=== PATIENT | female | born 1985 | race Caucasian/White ===

== ENCOUNTER 2017-04-14 18:10 | Emergency (ER) | payer OTHER ==
[~2017-04-14] VITALS: Ht 167.6 cm; Wt 107.9 kg
[~2017-04-14 18:10] MED LIST: IBUP80TA PO; PERCOCET PO; PREN27TA3 PO; VALT1TAB PO
[2017-04-14 21:32] LABS: BASO # 0.1 10^3/uL (0.0-0.2); BASO % 0.6 % (0.0-1.0); EOS # 0.1 10^3/uL (0.0-0.50); IMMATURE GRANULOCYTE % 0.3 % (0-0); LYMPH # 3.8 10^3/uL (1.5-4.5); MEAN CORPUSCULAR HEMOGLOBIN 30.7 pg (27.0-33.0); MEAN CORPUSCULAR HGB CONC 34.6 g/dl (32.0-36.5); MEAN CORPUSCULAR VOLUME 88.7 fl (80.0-96.0); MONO # 0.7 10^3/uL (0.0-0.8); MONO % 6.1 % (0.0-5.0); NEUTROPHILS # 6.8 10^3/uL (1.8-7.7); PLATELET COUNT, AUTOMATED 300 10^3/uL (150-450); RED CELL DISTRIBUTION WIDTH 12.5 % (11.5-14.5); WHITE BLOOD COUNT 11.5 10^3/uL (4.0-10.0)
[2017-04-14 21:35] LABS: ADD MORPHOLOGY? NO
[2017-04-14 21:42] LABS: CONTROL LINE HCG INT CTR LINE PRESENT
[2017-04-14 21:47] LABS: ALBUMIN 3.9 GM/DL (3.2-5.2); ALBUMIN/GLOBULIN RATIO 1.08 (1.00-1.93); ALKALINE PHOSPHATASE 102 U/L (45-117); ALT/SGPT 26 U/L (12-78); ANION GAP 5 MEQ/L (8-16); AST/SGOT 19 U/L (15-37); BILIRUBIN,DIRECT < 0.1 MG/DL (0.0-0.2); BILIRUBIN,TOTAL 0.2 MG/DL (0.2-1.0); BLOOD UREA NITROGEN 14 MG/DL (7-18); CALCIUM LEVEL 8.9 MG/DL (8.5-10.1); CARBON DIOXIDE LEVEL 27 MEQ/L (21-32); CHLORIDE LEVEL 107 MEQ/L (98-107); CREATININE FOR GFR 0.91 MG/DL (0.55-1.02); GLOMERULAR FILTRATION RATE > 60.0 (>60); GLUCOSE, FASTING 88 MG/DL (70-105); POTASSIUM SERUM 3.7 MEQ/L (3.5-5.1); SODIUM LEVEL 139 MEQ/L (136-145); TOTAL PROTEIN 7.5 GM/DL (6.4-8.2)
[2017-04-14] MEDS ORDERED: MIRA3350 PO (23:35)
--- NOTE | 2017-04-14 23:40 | REPUSA ---
Clinical history: Right upper quadrant pain. Findings: The pancreas is limited in visualization secondary to overlying bowel gas, but appears alexia sly unremarkable. The liver demonstrates uniform echotexture and echogenicity, with no mass lesions. The gallbladder is contracted but otherwise unremarkable. The common bile duct measures 2 mm and is w ithin normal limits. The right kidney measures 11.9 cm in length and is unremarkable. There is no asc ites. Impression: Unremarkable ultrasound examination of the right upper quadrant.
[2017-04-14] MEDS ORDERED: BISACODYL 5 MG TAB PO ONE (23:45)
[2017-04-14 23:57] VITALS: BP 129/88
--- NOTE | 2017-04-15 00:12 | REP ---
Clinical: Constipation and abdominal pain. Technique: Upright view of the chest with supine and upright views of the abdomen and pelvis. Findings: Frontal upright view of the chest demonstrates no acute cardiopulmonary process or free air below the diaphragm to suspect pneumoperitoneum. Supine and upright views of the abdomen and pelvis demonstrate nonspecific bowel gas pattern without obstruction or perforation. Moderate fecal stasis cannot be excluded. No organomegaly. No abnormal calcifications. Skeletal structures normal for age. Impression: Nonspecific bowel gas pattern. Cannot exclude moderate fecal stasis. Signed by Michael Khoury MD 04/15/2017 12:03 A
== END 2017-04-15 00:03 | disposition home or self-care (01) ==
LOC: M ED 18:10
DX: K59.00 Constipation, unspecified (principal)

== ENCOUNTER → 2017-06-14 | Outpatient (REF) | payer OTHER ==
[~2017-06-14] MED LIST changes: +MIRA3350 PO
== END ==
LOC: M LAB REF 13:46
PROVIDERS: ATTEND Specialist
DX: Z12.4 Encounter for screening for malignant neoplasm of cervix (principal)

== ENCOUNTER → 2018-01-26 | Outpatient (REF) | payer OTHER ==
[2018-01-26 14:18] LABS: BASO # 0.1 10^3/uL (0.0-0.2); BASO % 0.6 % (0.0-1.0); EOS # 0.1 10^3/uL (0.0-0.50); EOS % 0.9 % (0.0-3.0); HEMATOCRIT 41.3 % (36.0-47.0); HEMOGLOBIN 14.2 g/dl (12.0-15.5); IMMATURE GRANULOCYTE % 0.3 % (0-3.0); LYMPH # 2.4 10^3/uL (1.5-4.5); LYMPH % 31.4 % (24.0-44.0); MEAN CORPUSCULAR HEMOGLOBIN 30.9 pg (27.0-33.0); MEAN CORPUSCULAR HGB CONC 34.4 g/dl (32.0-36.5); MONO # 0.5 10^3/uL (0.0-0.8); MONO % 5.8 % (0.0-5.0); NEUTROPHILS # 4.7 10^3/uL (1.8-7.7); PLATELET COUNT, AUTOMATED 322 10^3/uL (150-450); RED BLOOD COUNT 4.59 10^6/uL (4.00-5.40); RED CELL DISTRIBUTION WIDTH 12.8 % (11.5-14.5); WHITE BLOOD COUNT 7.7 10^3/uL (4.0-10.0)
[2018-01-26 14:31] LABS: TOTAL 25(OH) VITAMIN D 17.9 NG/ML (30.0-100.0)
[2018-01-26 14:44] LABS: ERYTHROCYTE SEDIMENTATION RATE 7 mm/hr (0-20)
[2018-01-26 14:48] LABS: ALBUMIN 3.9 GM/DL (3.2-5.2); ALBUMIN/GLOBULIN RATIO 1.15 (1.00-1.93); ALKALINE PHOSPHATASE 101 U/L (45-117); ALT/SGPT 24 U/L (12-78); ANION GAP 10 MEQ/L (8-16); AST/SGOT 16 U/L (7-37); BILIRUBIN,TOTAL 0.4 MG/DL (0.2-1.0); BLOOD UREA NITROGEN 12 MG/DL (7-18); CALCIUM LEVEL 8.9 MG/DL (8.5-10.1); CARBON DIOXIDE LEVEL 24 MEQ/L (21-32); CHLORIDE LEVEL 108 MEQ/L (98-107); GLOMERULAR FILTRATION RATE > 60.0 (>60); GLUCOSE, FASTING 72 MG/DL (70-100); POTASSIUM SERUM 4.2 MEQ/L (3.5-5.1); RHEUMATOID FACTOR QUANT < 10.0 IU/ML (<15.0); SODIUM LEVEL 142 MEQ/L (136-145); TOTAL PROTEIN 7.3 GM/DL (6.4-8.2)
[2018-01-27 16:20] LABS: ANTINUCLEAR ANTIBODIES DIRECT Negative (Negative)
== END ==
LOC: M LABNEURO 10:53
DX: R51 Headache (principal); R42 Dizziness and giddiness
CPT/HCPCS: 84443

== ENCOUNTER → 2018-04-04 | Outpatient (REF) | payer OTHER ==
[2018-04-06 00:06] LABS: Lyme Disease IgG/IgM Antibodie <0.91 ISR (0.00-0.90); Lyme Disease IgM Ab Quantitati <0.80 index (0.00-0.79)
== END ==
LOC: M LABNEURO 13:36
DX: R21 Rash and other nonspecific skin eruption (principal)
CPT/HCPCS: 36415

== ENCOUNTER → 2018-07-05 | Outpatient (REF) | payer OTHER ==
[2018-07-08 14:10] LABS: HPV HYBRID CAPTURE II Positive (Negative)
== END ==
LOC: M LAB REF 17:22
PROVIDERS: ATTEND Specialist
DX: R87.610 Atypical squamous cells of undetermined significance on cytologic smear of cervix (ASC-US) (principal)

== ENCOUNTER → 2018-07-06 | Outpatient (CLI) | payer OTHER ==
--- NOTE | 2018-07-07 08:18 | REP ---
Clinical: Pelvic and perineal pain . Technique: Transabdominal pelvic ultrasound followed by transvaginal examination for better evaluation of the endometrium and adnexa with color Doppler evaluation of the ovaries. Findings: Bladder is unremarkable and measures 9.4 x 6.9 x 6.5 cm . Heterogeneous anteverted uterus measures 11.4 x 5.8 x 7.1 cm . The endometrial complex measures 19.7 mm thickness. No discrete uterine or endometrial abnormalities are appreciated. Bilateral ovaries are normal in appearance and vascularity without evidence for torsion. Right ovary measures 2.2 x 1.4 x 2.9 cm ; with flow identified on color images . Left ovary measures 3.6 x 2.1 x 2.2 cm and includes 12 mm physiologic involuting cyst ; R I = 0.54 . no pelvic fluid or adnexal mass lesion . Impression: 1. heterogeneous anteverted uterus with thickened endometrial complex likely related to menstrual cycle. 2. 1.2 cm involuting left ovarian cyst. Electronically Signed by Michael Khoury MD 07/07/2018 08:09 A
== END ==
LOC: M SMT 10:21
PROVIDERS: ATTEND Specialist
DX: R10.2 Pelvic and perineal pain (principal); N83.292 Other ovarian cyst, left side

== ENCOUNTER → 2018-08-14 | Outpatient (REF) | payer OTHER | LOC: M LABNEURO 13:05 | PROVIDERS: ATTEND Physician Assistant Medical | DX: E55.9 Vitamin D deficiency, unspecified (principal) ==

== ENCOUNTER → 2019-01-29 | Outpatient (REF) | payer OTHER ==
[~2019-01-29] MED LIST changes: +OXYC1TAB23 PO; -PERCOCET PO
[2019-02-01 14:07] LABS: HPV HYBRID CAPTURE II Negative (Negative)
== END ==
LOC: M LAB REF 09:10
PROVIDERS: ATTEND Specialist
DX: R87.610 Atypical squamous cells of undetermined significance on cytologic smear of cervix (ASC-US) (principal)

== ENCOUNTER → 2020-02-16 | Outpatient (REF) | payer OTHER | LOC: M LAB REF 07:07 | PROVIDERS: ATTEND Physician Assistant | DX: R10.30 Lower abdominal pain, unspecified (principal) ==

== ENCOUNTER → 2020-06-04 | Outpatient (REF) | payer OTHER ==
[2020-06-04 20:34] LABS: CHLAMYDIA DNA AMPLIFICATION NEGATIVE (NEGATIVE); GC DNA AMPLIFICATION NEGATIVE (NEGATIVE)
== END ==
LOC: M SFHCWAGY 16:50
PROVIDERS: ATTEND Specialist
DX: Z12.4 Encounter for screening for malignant neoplasm of cervix (principal); R87.610 Atypical squamous cells of undetermined significance on cytologic smear of cervix (ASC-US); Z20.2 Contact with and (suspected) exposure to infections with a predominantly sexual mode of transmission
CPT/HCPCS: 87491; 87591; 87624; G0123

== ENCOUNTER → 2020-06-04 | Outpatient (REF) | payer OTHER ==
[2020-06-04 18:50] LABS: HEPATITIS C VIRUS ABY INDEX < 0.0 INDEX (<0.8); HIV 1&2 SCREEN CENTAUR NEGATIVE (NEGATIVE)
== END ==
LOC: M PLALAB 15:47
PROVIDERS: ATTEND Specialist
DX: Z01.419 Encounter for gynecological examination (general) (routine) without abnormal findings (principal); Z20.2 Contact with and (suspected) exposure to infections with a predominantly sexual mode of transmission

== ENCOUNTER 2020-09-03 00:27 | Emergency (ER) | payer MEDICAID, OTHER ==
[~2020-09-03] VITALS: Ht 167.6 cm; Wt 83.2 kg
--- OUTSIDE RECORDS SUMMARY | 2020-09-03 00:34 | CCD | Continuity of Care Document ---
Author Author Jacki VERONICA Organization Unknown Address [address] [place] [address] [place] [address] Phone [phone] Care Team Providers Care Computed Tomography Technician Name Role Phone No PCP AUTM Unavailable [place] [facility] [phone] Problems Description No Information Available Social History Type Date Description Comments Sex Unknown ETOH Use Rarely consumes alcohol Tobacco Use Start: Unknown Patient is a current smoker, smo kes some days Tobacco Use Start: Unknown The patient has never vaped Smoking Status Reviewed: 02/16/20 The patient has never vaped Allergies, Adverse Reactions, Alerts Description No Known Drug Allergies Medications Active Medications SIG Qnty Indications Ordering Provide r Date Prednisone 20mg Tablets 2 tab by mouth daily x 4 days 8tabs J20.9 Vin Mcgovern JR., M.D. History Medications No Active Medications Unknown 10/2019 - 07/30/2020 No Active Medications Unknown 07/2019 - 02/16/2020 Pyridium 200mg Tablets 1 tab by mouth three times a day with food as needed for symptoms 9tabs R10.30 Vin Mcogvern JR., M.D. 02/16/2020 - 02/19/2020 Immunizations Description No Information Available Vital Signs Date Vital Result Comment 07/30/2020 10:14am BP Systolic 130 mmHg BP Diastolic 90 mmHg Heart Rate 96 /min Respiratory Rate 16 /min O2 % BldC Oximetry 99 % Body Temperature 983.0 F Weight 197.00 lb Height 66 inches 5'6" BMI (Body Mass Index) 31.8 kg/m2 Pain Level 6 07/24/2020 9:20am BP Systolic 138 mmHg BP Diastolic 80 mmHg Heart Rate 78 /min Respiratory Rate 16 /min O2 % BldC Oximetry 98 % Body Temperature 97.5 F Weight 197.00 lb Height 66 inches 5'6" BMI (Body Mass Index) 31.8 kg/m2 Pain Level 2 Results Test Acquired Date Facility Test Result H/L Range Note Laboratory test finding 02/16/2020 [facility] [address] [place] [address] [phone] Urine Culture FULL REPORT IN L <SEE NOTE> Normal 1 1 FULL REPORT IN LAB NOTES ([facility]). NO GROWTH CLINICAL SIGNIFICANCE 2 OR MORE ORGANISMS Procedures Description No Information Available Medical Devices Description No Information Available Encounters Type Date Location Provider Dx Diagnosis Office Visit 07/30/2020 10:00a [facility] Christopher Veronica, P .A. J06.9 Acute upper respiratory infection, unspecified J02.9 Acute pharyngitis, unspecifi ed J20.9 Acute bronchitis, unspecifie d Office Visit 07/24/2020 8:45a [facility] Christopher Veronica, P .A. J06.9 Acute upper respiratory infection, unspecified J02.9 Acute pharyngitis, unspecifi ed Z20.828 Contact w and exposure to ot h viral communicable diseases Office Visit 02/16/2020 2:15p [facility] PIEDAD Pierce R10.30 Lower abdominal pain, unspecified Assessments Date Code Description Provider 07/30/2020 J06.9 Acute upper respiratory infectio n, unspecified Christopher Veronica, P.A. 07/30/2020 J02.9 Acute pharyngitis, unspecified Daria Veronica, P.A. 07/30/2020 J20.9 Acute bronchitis, unspecified Ena Veronica, P.A. 07/24/2020 J06.9 Acute upper respiratory infectio n, unspecified Christopher Veronica, P.A. 07/24/2020 J02.9 Acute pharyngitis, unspecified J oncliff Veronica, P.A. 07/24/2020 Z20.828 Contact with and (bar spected) exposure to other viral communicable diseases Christopher Veronica, P.A. 02/16/2020 R10.30 Lower abdominal pain, unspecifie d [facility] Pierce Plan of Treatment No Information Available Functional Status Description No Information Available Mental Status Description No Information Available Referrals Description No Information Available
--- OUTSIDE RECORDS SUMMARY | 2020-09-03 00:34 | CCD ---
Continuity of Care Document (CCD) Created on: 07/24/2020 JolynnJacki External Reference #: [id number] : [id number] Sex: Female Author Author Jacki VERONICA Organization Unknown Address [address] [place] [address] [place] [address] Phone [phone] Care Team Providers Care Teaching Specialists Name Role Phone No PCP AUTM Unavailable [place] [facility] [phone] Problems Description No Information Available Social History [...] SIG Qnty Indications Ordering Provide r Date No Active Medications Unknown 10/2019 History Medications No Active Medications Unknown 07/2019 - 02/16/2020 Pyridium 200mg Tablets 1 tab by mouth three times a day with food as needed for symptoms 9tabs R10.30 Vin Mcgovern JR., M.D. 02/16/2020 - 02/19/2020 Immunizations Description No Information Available Vital Signs Date Vital Result Comment 07/24/2020 9:20am BP Systolic 138 mmHg BP Diastolic 80 mmHg Heart Rate 78 /min Respiratory Rate 16 /min O2 % BldC Oximetry 98 % Body Temperature 97.5 F Weight 197.00 lb Height 66 inches 5'6" BMI (Body Mass Index) 31.8 kg/m2 Pain Level 2 02/16/2020 2:38pm BP Systolic 120 mmHg BP Diastolic 85 mmHg Heart Rate 77 /min Respiratory Rate 18 /min O2 % BldC Oximetry 97 % Body Temperature 98.7 F Weight 230.00 lb Height 66 inches 5'6" BMI (Body Mass Index) 37.1 kg/m2 Pain Level 2 Results Test Acquired Date Facility Test Result H/L Range Note Laboratory test finding 02/16/2020 [facility] [id number] [place] [address] [phone] Urine Culture FULL REPORT IN L <SEE NOTE> Normal 1 1 FULL REPORT IN LAB NOTES ([facility]). NO GROWTH CLINICAL SIGNIFICANCE 2 OR MORE ORGANISMS Procedures Description No Information Available Medical Devices Description No Information Available Encounters Type Date Location Provider Dx Diagnosis Office Visit 07/24/2020 8:45a [facility] Christopher Veronica, P .A. J06.9 Acute upper respiratory infection, unspecified J02.9 Acute pharyngitis, unspecifi ed Z20.828 Contact w and exposure to ot h viral communicable diseases Office Visit 02/16/2020 2:15p [facility] PIEDAD Pierce R10.30 Lower abdominal pain, unspecified Assessments Date Code Description Provider 07/24/2020 J06.9 Acute upper respiratory infectio n, unspecified Christopher Veronica, P.A. 07/24/2020 J02.9 Acute pharyngitis, unspecified J sathya Veronica, P.A. 07/24/2020 Z20.828 Contact with and (bar spected) exposure to other viral communicable diseases Christopher Veronica, P.A. 02/16/2020 R10.30 Lower abdominal pain, unspecifie d [facility] Pierce Plan of Treatment No Information Available Functional Status Description No Information Available Mental Status Description No Information Available Referrals Description No Information Available
--- OUTSIDE RECORDS SUMMARY | 2020-09-03 00:34 | CCD ---
Author Author [facility] Organization [facility] Address Unknown Phone Unavailable Care Team Providers Care Aviation Ordnance Officer Name Role Phone [place], JLAM Unavailable Unavailable Bc Robles MD Unavailable Unavailable Bc Robles MD Unavailable Unavailable Bc Robles MD Unavailable Unavailable Bc Robles MD Unavailable Unavailable Bc Robles MD Unavailable Unavailable Bc Robles MD Unavailable Unavailable Bc Robles MD Unavailable Unavailable Bc Robles MD Unavailable Unavailable Bc Robles MD Unavailable Unavailable Bc Robles MD Unavailable Unavailable Bc Robles MD Unavailable Unavailable Bc Robles MD Unavailable Unavailable Bc Robles MD Unavailable Unavailable Bc Robles MD Unavailable Unavailable Bc Robles MD Unavailable Unavailable Bc Robles MD Unavailable Unavailable Bc Robles MD Unavailable Unavailable Bc Robles MD Unavailable Unavailable Bc Robles MD Unavailable Unavailable Bc Robles MD Unavailable Unavailable Bc Robles MD Unavailable Unavailable Bc Robles MD Unavailable Unavailable Bc Robles MD Unavailable Unavailable Bc Robles MD Unavailable Unavailable Bc Robles MD Unavailable Unavailable Bc Robles MD Unavailable Unavailable Bc Robles MD Unavailable Unavailable Bc Robles MD Unavailable Unavailable Bc Robles MD Unavailable Unavailable Bc Robles MD Unavailable Unavailable Bc Robles MD Unavailable Unavailable Bc Robles MD Unavailable Unavailable Bc Robles MD Unavailable Unavailable Bc Robles MD Unavailable Unavailable Bc Robles MD Unavailable Unavailable RoblesBc MD Unavailable Unavailable Bc Robles MD Unavailable Unavailable Bc Robles MD Unavailable Unavailable Bc Robles MD Unavailable Unavailable Bc Robles MD Unavailable Unavailable Bc Robles MD Unavailable Unavailable Bc Robles MD Unavailable Unavailable Bc Robles MD Unavailable Unavailable Bc Robles MD Unavailable Unavailable RoblesBc MD Unavailable Unavailable RoblesBc MD Unavailable Unavailable RoblesBc MD Unavailable Unavailable RoblesBc MD Unavailable Unavailable Bc Robles MD Unavailable Unavailable Bc Robles MD Unavailable Unavailable Bc Robles MD Unavailable Unavailable RoblesBc MD Unavailable Unavailable Bc Robles MD Unavailable Unavailable Bc Robles MD Unavailable Unavailable Bc Robles MD Unavailable Unavailable Bc Robles MD Unavailable Unavailable Bc Robles MD Unavailable Unavailable Bc Robles MD Unavailable Unavailable Bc Robles MD Unavailable Unavailable Bc Robles MD Unavailable Unavailable Bc Robles MD Unavailable Unavailable Bc Robles MD Unavailable Unavailable Bc Robles MD Unavailable Unavailable Bc Robles MD Unavailable Unavailable Bc Robles MD Unavailable Unavailable Bc Robles MD Unavailable Unavailable Bc Robles MD Unavailable Unavailable Bc Robles MD Unavailable Unavailable Bc Robles MD Unavailable Unavailable Bc Robles MD Unavailable Unavailable Bc Robles MD Unavailable Unavailable Bc Robles MD Unavailable Unavailable Bc Robles MD Unavailable Unavailable Bc Robles MD Unavailable Unavailable Bc Robles MD Unavailable Unavailable Bc Robles MD Unavailable Unavailable Bc Robles MD Unavailable Unavailable Bc Robles MD Unavailable Unavailable Bc Robles MD Unavailable Unavailable Bc Robles MD Unavailable Unavailable Bc Robles MD Unavailable Unavailable Bc Robles MD Unavailable Unavailable Bc Robles MD Unavailable Unavailable Bc Robles MD Unavailable Unavailable Bc Robles MD Unavailable Unavailable Bc Robles MD Unavailable Unavailable Bc Robles MD Unavailable Unavailable Bc Robles MD Unavailable Unavailable Bc Robles MD Unavailable Unavailable Mollura, E Kenyatta PA Unavailable Unavailable Mollura, E Kenyatta PA Unavailable Unavailable Mollura, E Kenyatta PA Unavailable Unavailable Mollura, E Kenyatta PA Unavailable Unavailable Mollura, E Kenyatta PA Unavailable Unavailable Mollura, E Kenyatta PA Unavailable Unavailable Mollura, E Kenyatta PA Unavailable Unavailable Mollura, E Kenyatta PA Unavailable Unavailable Mollura, E Kenyatta PA Unavailable Unavailable Mollura, E Kenyatta PA Unavailable Unavailable Mollura, E Kenyatta PA Unavailable Unavailable Mollura, E Kenyatta PA Unavailable Unavailable Mollura, E Kenyatta PA Unavailable Unavailable Mollura, E Kenyatta PA Unavailable Unavailable Mollura, E Kenyatta PA Unavailable Unavailable Mollura, E Kenyatta PA Unavailable Unavailable Mollura, E Kenyatta PA Unavailable Unavailable Mollura, E Kenyatta PA Unavailable Unavailable Mollura, E Kenyatta PA Unavailable Unavailable Mollura, E Kenyatta PA Unavailable Unavailable Mollura, E Kenyatta PA Unavailable Unavailable Mollura, E Kenyatta PA Unavailable Unavailable Mollura, E Kenyatta PA Unavailable Unavailable Mollura, E Kenyatta PA Unavailable Unavailable Mollura, E Kenyatta PA Unavailable Unavailable Mollura, E Kenyatta PA Unavailable Unavailable Mollura, E Kenyatta PA Unavailable Unavailable Mollura, E Kenyatta PA Unavailable Unavailable Mollura, E Kenyatta PA Unavailable Unavailable Mollura, E Kenyatta PA Unavailable Unavailable Mollura, E Kenyatta PA Unavailable Unavailable Mollura, E Kenyatta PA Unavailable Unavailable Mollura, E Kenyatta PA Unavailable Unavailable Mollura, E Kenyatta PA Unavailable Unavailable Mollura, E Kenyatta PA Unavailable Unavailable Mollura, E Kenyatta PA Unavailable Unavailable RING, K LAUREN PA Unavailable Unavailable RING, K LAUREN PA Unavailable Unavailable RING, K LAUREN PA Unavailable Unavailable RING, K LAUREN PA Unavailable Unavailable RING, K LAUREN PA Unavailable Unavailable RING, K LAUREN PA Unavailable Unavailable RING, K LAUREN PA Unavailable Unavailable RING, K LAUREN PA Unavailable Unavailable RING, K LAUREN PA Unavailable Unavailable RING, K LAUREN PA Unavailable Unavailable RING, K LAUREN PA Unavailable Unavailable RING, K LAUREN PA Unavailable Unavailable RING, K LAUREN PA Unavailable Unavailable RING, K LAUREN PA Unavailable Unavailable RING, K LAUREN PA Unavailable Unavailable RING, K LAUREN PA Unavailable Unavailable RING, K LAUREN PA Unavailable Unavailable RING, K LAUREN PA Unavailable Unavailable RING, K LAUREN PA Unavailable Unavailable RING, K LAUREN PA Unavailable Unavailable RING, K LAUREN PA Unavailable Unavailable Dille, E Keli DDS Unavailable Unavailable Dille, E Keli DDS Unavailable Unavailable Dille, E Keli DDS Unavailable Unavailable Dille, E Keli DDS Unavailable Unavailable JEREMÍAS, MERCEDES PA Unavailable Unavailable JEREMÍAS, MERCEDES PA Unavailable Unavailable JEREMÍAS, MERCEDES PA Unavailable Unavailable JEREMÍAS, MERCEDES PA Unavailable Unavailable JEREMÍAS, MERCEDES PA Unavailable Unavailable JEREMÍAS, MERCEDES PA Unavailable Unavailable JEREMÍAS, MERCEDES PA Unavailable Unavailable JEREMÍAS, MERCEDES PA Unavailable Unavailable JEREMÍAS, MERCEDES PA Unavailable Unavailable JEREMÍAS, MERCEDES PA Unavailable Unavailable JEREMÍAS, MERCEDES PA Unavailable Unavailable JEREMÍAS, MERCEDES PA Unavailable Unavailable JEREMÍAS, MERCEDES PA Unavailable Unavailable JEREMÍAS, MERCEDES PA Unavailable Unavailable JEREMÍAS, MERCEDES PA Unavailable Unavailable JEREMÍAS, MERCEDES PA Unavailable Unavailable JEREMÍAS, MERCEDES PA Unavailable Unavailable JEREÍMAS, MERCEDES PA Unavailable Unavailable JEREMÍAS, MERCEDES PA Unavailable Unavailable JEREMÍAS, MERCEDES PA Unavailable Unavailable JEREMÍAS, MERCEDES PA Unavailable Unavailable JEREMÍAS, MERCEDES PA Unavailable Unavailable JEREMÍAS, MERCEDES PA Unavailable Unavailable JEREMÍAS, MERCEDES PA Unavailable Unavailable JEREMÍAS, MERCEDES PA Unavailable Unavailable JEREMÍAS, MERCEDES PA Unavailable Unavailable JEREMÍAS, MERCEDES PA Unavailable Unavailable JEREMÍAS, MERCEDES PA Unavailable Unavailable JEREMÍAS, MERCEDES PA Unavailable Unavailable JEREMÍAS, MERCEDES PA Unavailable Unavailable JEREMÍAS, MERCEDES PA Unavailable Unavailable JEREMÍAS, MERCEDES PA Unavailable Unavailable JEREMÍAS, MERCEDES PA Unavailable Unavailable JEREMÍAS, MERCEDES PA Unavailable Unavailable JEREMÍAS, MERCEDES PA Unavailable Unavailable JEREMÍAS, MERCEDES PA Unavailable Unavailable JEREMÍAS, MERCEDES PA Unavailable Unavailable JEREMÍAS, MERCEDES PA Unavailable Unavailable Kunnumpurath, F Eun Unavailable Unavailable Kunnumpurath, F Eun Unavailable Unavailable Kunnumpurath, F Eun Unavailable Unavailable Kunnumpurath, F Eun MD Unavailable Unavailable Kunnumpurath, F Eun Unavailable Unavailable Kunnumpurath, F Eun Unavailable Unavailable Kunnumpurath, F Eun Unavailable Unavailable Kunnumpurath, F Eun Unavailable Unavailable Kunnumpurath, F Eun Unavailable Unavailable Kunnumpurath, F Eun Unavailable Unavailable Kunnumpurath, F Eun Unavailable Unavailable Kunnumpurath, F Eun MD Unavailable Unavailable Kunnumpurath, F Eun Unavailable Unavailable Kunnumpurath, F Eun MD Unavailable Unavailable Kunnumpurath, F Eun Unavailable Unavailable Kunnumpurath, F Eun Unavailable Unavailable Kunnumpurath, F Eun MD Unavailable Unavailable Kunnumpurath, F Eun MD Unavailable Unavailable Kunnumpurath, F Eun MD Unavailable Unavailable Kunnumpurath, F Eun MD Unavailable Unavailable Kunnumpurath, F Eun MD Unavailable Unavailable Kunnumpurath, F Eun MD Unavailable Unavailable Kunnumpurath, F Eun MD Unavailable Unavailable Kunnumpurath, F Eun MD Unavailable Unavailable Kunnumpurath, F Eun MD Unavailable Unavailable Kunnumpurath, F Eun MD Unavailable Unavailable Kunnumpurath, F Eun MD Unavailable Unavailable Kunnumpurath, F Eun MD Unavailable Unavailable Kunnumpurath, F Eun MD Unavailable Unavailable Kunnumpurath, F Eun MD Unavailable Unavailable Kunnumpurath, F Eun MD Unavailable Unavailable Kunnumpurath, F Eun MD Unavailable Unavailable Kunnumpurath, F Eun MD Unavailable Unavailable Kunnumpurath, F Eun MD Unavailable Unavailable Kunnumpurath, F Eun MD Unavailable Unavailable Kunnumpurath, F Eun MD Unavailable Unavailable Kunnumpurath, F Eun MD Unavailable Unavailable Kunnumpurath, F Eun MD Unavailable Unavailable Re-disclosure Warning The records that you are about to access may contain information from federally-assisted alcohol or drug abuse programs. If such information is present, then the following federally mandated warning applies: This information has been disclosed to you from records protected by federal confidentiality rules (42 CFR part 2). The federal rules prohibit you from making any further disclosure of this information unless further disclosure is expressly permitted by the written consent of the person to whom it pertains or as otherwise permitted by 42 CFR part 2. A general authorization for the release of medical or other information is NOT sufficient for this purpose. The Federal rules restrict any use of the information to criminally investigate or prosecute any alcohol or drug abuse patient.The records that you are about to access may contain highly sensitive health information, the redisclosure of which is protected by Article 27-F of the [facility] Public Health law. If you continue you may have access to information: Regarding HIV / AIDS; Provided by facilities licensed or operated by the [facility] Office of Mental Health; or Provided by the [facility] Office for People With Developmental Disabilities. If such information is present, then the following [facility] mandated warning applies: This information has been disclosed to you from confidential records which are protected by state law. State law prohibits you from making any further disclosure of this information without the specific written consent of the person to whom it pertains, or as otherwise permitted by law. Any unauthorized further disclosure in violation of state law may result in a fine or shelter sentence or both. A general authorization for the release of medical or other information is NOT sufficient authorization for further disc losure. Allergies and Adverse Reactions Type Description Substance Reaction Status Data Source(s ) No Known Drug Allergies No Known Drug Allergies [facility] Family History Family Member Name Family Member Gender Family Member Status Date o f Status Description Data Source(s) Unknown Unknown Problem [facility] ([facility], ) Unknown Male Problem MEDENT ([facility]) Father Unknown Unknown Problem MEDENT ([facility]) Encounters Encounter Providers Location Date Indications Data Source(s ) Outpatient Attender: MERCEDES Kincaid ry 07/30/2020 09:00:00 AM EST MED[facility] ([facility] Outpatient Attender: MERCEDES Kincaid ry 07/24/2020 07:45:00 AM EST MEDENT ([facility]) Outpatient [address] [facility] [address] 06/04/2020 12:00:00 AM EST eCW1 ([facility]) Outpatient Attender: Keli ROCHA 04/03/2020 09:03:01 [facility] Outpatient Attender: Keli ROBLES 03/12/2020 09:19:00 [facility] Outpatient Attender: Keli ROBLES 03/12/2020 09:18:00 [facility] Outpatient Attender: Keli ROBLES 02/20/2020 10:31:01 A [facility]/19[facility]2020 08:20:03 AM [facility] Outpatient Attender: [facility] 02/19/2020 07:45:02 AM EDT [facility] 02/19/2020 07:44:01 AM EDT [facility] Outpatient Attender: [facility] 02/19/2020 07:32:01 AM EDT [facility] Outpatient Attender: [facility] 02/19/2020 12:02:02 AM EDT [facility] Outpatient Attender: [facility] 02/18/2020 01:31:00 PM EDT [facility] Outpatient Attender: [facility] 02/18/2020 11:20:00 AM EDT [facility] Outpatient Attender: Keli Alcraaz [facility] 02/18/2020 11:18:01 A M EDT [facility] Outpatient Attender: LAUREN Massey 02/16/2020 02:15:00 PM EDT [facility] ([facility]) Outpatient Attender: Keli Lissa [facility] 08/13/2019 02:11:01 P Outpatient Attender: Keli Lissa [facility] 08/13/2019 02:09:02 P Outpatient Attender: Keli Lissa [facility] 08/13/2019 02:08:00 P Outpatient Attender: Keli Soosmany [facility] 08/13/2019 02:07:01 P Outpatient Attender: Filipe Robles MD 08/13/2019 02:03:00 PM [facility] Outpatient Attender: Filipe Robles MD 08/13/2019 01:05:00 PM [facility] Outpatient Attender: Filipe Robles MD 07/19/2019 01:08:01 PM [facility] Outpatient Attender: Eun Chavez MDConsultant: Kenyatta HERBERT 10/25/2018 08:52:24 AM EDT - 10/25/2018 08:52:00 AM EDT [facility] Admission cancelled. Disregard status an d admitted date. Medications Medication Brand Name Start Date Product Form Dose Route Admi nistrative Instructions Pharmacy Instructions Status Indications Reaction Description Data Source(s) Prednisone 20 MG Oral Tablet Prednisone 07/30/2020 12:00:00 AM EST ORAL active MED[facility] ([facility]) 20 mg 07/30/2020 12:00:00 AM EST tablet 8 2 TABLETS BY MOUTH DAILY FOR 4 DAYS 2 TABLETS BY MOUTH DAILY FOR 4 DAYS SOLD: 07/30/2020 [facility] No Active Medications 02/19/2020 12:00:00 AM EDT completed MEDENT ([facility]) 200 mg 02/16/2020 12:00:00 AM EDT tablet 9 TAKE ONE TABLET BY MOUTH THREE TIMES A DAY WITH FOOD NEEDED FOR SYMPTOMS TAKE ONE TABLET BY MOUTH THREE TIMES A DAY WITH FOOD NEEDED FOR SYMPTOMS SOLD: 02/19/2020 [facility] Phenazopyridine hydrochloride 200 MG Oral Tablet [Pyridium] Pyridium 02/16/2020 12:00:00 AM EDT ORAL completed [facility] ([facility]) No Active Medications 02/16/2020 12:00:00 AM EDT completed MED[facility] ([facility]) Insurance Providers Payer name Policy type / Coverage type Policy ID Covered alliance party ID Covered alliance party's relationship to ortiz Policy Ortiz Plan Information [facility] [id number] SP [id number] [facility] [id number] SP [id number] [facility] Essential Plan P UNAVAILABLE S UNAVAILABLE UNHC COMMUNITY PLAN [facility] [id number] SP [id number] Self Pay P UNAVAILABLE S UNAVAILA BLE D [facility] CHP/Essential Plan S [id number] S [id number] Managed Care - [facility] Community Plan P [id number] S [id number] Medicaid S [id number] S [id number] [facility] I [id number] Self [id number] [facility] COMMUNTY PLAN [id number] 18 [id number] [facility] COMMUNITY PLAN XIX [id number] 18 [id number] [facility] Communty Plan Medicaid [id number] Self [id number] [facility] Maintenance Organization (HMO) [id number] Self [id number] [facility] COMMUNITY PLAN [facility] [id number] SP [id number] [facility] Communty Plan Medicaid [id number] Self [id number] [facility] Communty Plan Medicaid [id number] Self [id number] Managed Care - Community Plan United Healthcare P [id number] S [id number] [facility] KELLY MARTINO 18 KELLY MARTINO [place] Care Commercial [id number] Self [id number] [facility] Commercial [id number] Self [id number] [facility] O [id number] S [id number] [place] Care Commercial [id number] Self [id number] Managed Care [place] P [id number] S [id number] Medicaid S [id number] S [id number] [facility] [place] [id number] 18 [id number] [facility] [place] [id number] 18 [id number] [facility] [place] [id number] 18 [id number] HERI [id number] SP [id number] 200 HERI [id number] SP [id number] [facility] [place] Commercial [id number] Self [id number] [facility] [place] [id number] 18 [id number] [place] [id number] S [id number] [place]ig[place] Part B [id number] Self [id number] [facility] [place] Medicaid [id number] Self [id number] Managed Care Heri P [id number] S [id number] Medicaid S [id number] S [id number] Managed Care - Community Plan [facility] P [id number] S [id number] [facility] Medicaid Medicaid [id number] Self [id number] [facility] Health Maintenance Organization (HMO) [id number] Self [id number] Medicaid Dental S [id number] S [id number] Managed Care [facility] P [id number] S [id number] Medicaid Dental S UNAVAILABLE S UN AVAILABLE UNHC COMMUNITY PLAN MCDHMO UNAVAILABLE SP UNAVAILABLE BLUE CROSS [place] PLAN [id number] SP [id number] [place] BCBS P [id number] S [id number] EXCELLUS BCBS P UNAVAILABLE S UNAV AILABLE HMO BLUE [id number] SP [id number] MEDICAID [id number] SP [id number] Results ID Date Data Source [id number] 07/24/2020 12:00:00 AM EST [facility] Name Value Range Interpretation Code Description Data Karin rce(s) Supporting Document(s) SARS coronavirus 2 Ag Negative [facility] This lab was ordered by [facility] and reported by [facility]. ID Date Data Source SYPHILIS ANTIBODY (RPR SCREEN) 06/04/2020 12:00:00 AM EST eC W1 ([facility]) Name Value Range Interpretation Code Description Data Karin rce(s) Supporting Document(s) NONREACTIVE NONREACTIVE eCW1 ([facility]) ID Date Data Source [id number] 06/04/2020 12:00:00 AM EST eCW1 ([facility]) Name Value Range Interpretation Code Description Data Karin rce(s) Supporting Document(s) eCW1 ([facility]) ID Date Data Source HEPATITIS C ANTIBODY INDEX 06/04/2020 12:00:00 AM EST eCW1 ( [facility]) Name Value Range Interpretation Code Description Data Karin rce(s) Supporting Document(s) < 0.0 <0.8 eCW1 ([facility]) ID Date Data Source [id number] 02/19/2020 07:30:12 AM EDT [facility] Vital SignsBlood Pressure: 128/78 Patient History Medical History:depressionanxietySurgical History: 2012Family History:Cancer - Breast and cervical (Maternal Grandmother)Social/Personal History: Smoking Status: current every day smokerDo you vape? NoCurrent Problems: Tobacco use (ICD-305.1) (QXI01-R28.0)Dental caries (ICD-521.00) (DAY61-V04.9)Teeth extraction (ICD-525.10) (VAC17-A10.499)Dyspepsia (ICD-536.8) (ICD10- K30)Depression (ICD-311) (SVD35-X02.9)Obesity (ICD-278.00) (DFZ09-P28.09)DENTAL CARIES EXTENDING INTO PULP (ICD-521.03) (KXJ72-B80.63)Problem list reviewed during this update.Medication list reviewed during this update.No known medications.Allergy list reviewed during this update.No known allergies.Patient declined [facility].Past Medical History:(reviewed - no changes required) depressionanxiety Dental Chart: Procedures:Type - CDT Code - Description B - (D1110) Prophylaxis, adult (Performed by Rosalia Sanford RDH) B - (D0120) Periodic oral evaluation - established patient (Performed by Keli Alcaraz DDS) B - (D0330) Panoramic film (Performed by Rosalia Sanford RDH) Chart Alert:c Prophy 1 per 6 month periodchild through age 12adult 13+next avail has an apt 05/14/2016Exam 1 per 6 month periodnext avail has an apt 05/14/2016Fl2 1 per 6 month periodthrough age 20next avail Bwx 4 films per 6 month periodnext avail 05/14/2016Panorex 1 every 3 yearsnext avail Pano taken 02/19/2020Sealants every 5 yearsage 5-15pre authorization needed for perio with charting and fmx Chart Notes:damian (Feb 19 2020 8:19AM): [facility](-). CC: none. Reviewed Xrays. Exam: no caries detected. OCS: WNL, IO/ EO completed, No significant hard findings upon clinical exam.Additional PPE requirements due to COVID-19 in the dental setting, N95, surgical mask, hair covering, gown and shieldPt was cooperative. OHI given Referral: N/A NV:recallRosalia Sanford RDH by damian (02/19/2020 8:19 AM): ; iveth (Feb 19 2020 7:53AM): [place] prophy, PanoPt states she is brushing bid and flossing QD. Trace calculus/stain. Tissue pink andstippled; minimal bleeding with hand scaling. Numerous watches from previous visits. Cont to monitor #2 no discomfort. Med Hx reviewed with pt- no allergies, meds or health concerns. 6 month recall. Exc pt. Rosalia Sanford RDH by iveth (02/19/2020 7:53 AM): Tooth Notes and Watches:- Tooth 11 Watch: Marisel Geronimo by vonnie (05/14/2016 10:09 AM): - Tooth 18 Note: Pt is aware but can't afford crown right. Will opt for extraction when the tooth begins to bother her.Marisel Robertson by vonnie (05/14/2016 10:12 AM): Per Dr Alcaraz pt wi ll not benefit from a crown at this point, and will have a filling placed for now. Rosalia Sanford by iveth (03/22/2018 7:58 AM): - Tooth 2 Note: Kaylen Pascual by jean carlos (03/20/2015 10:42 AM): Tooth is not causing problems, will continue to monitor.Rosalia Sanford by iveth (09/20/2018 7:58 AM): - Tooth 6 Watch: MesialRosalia Sanford by iveth (09/15/2017 7:45 AM): - Tooth 7 Watch: MesialRosalia Sanford by iveth (09/15/2017 7:46 AM): - Tooth 8 Watch: DistalRosalia Sanford by iveth (09/15/2017 7:46 AM): Assessment & Plan Allergies:No Known Allergies (updated 02/19/2020) Clinical Visit Summary Declined Name Value Range Interpretation Code Description Data Karin rce(s) Supporting Document(s) ID Date Data Source [id number] 02/16/2020 02:57:00 PM EDT MEDENT ([facility]) Name Value Range Interpretation Code Description Data Karin rce(s) Supporting Document(s) Bacteria identified in Urine by Culture Laboratory test result MEDENT ([facility]) FULL REPORT IN LAB NOTES (eCW and Medent ). NO GROWTH CLINICAL SIGNIFICANCE 2 OR MORE ORGANISMS ID Date Data Source [id number] 08/13/2019 01:08:38 PM [facility] Patient History Social/Personal History: Smoking Status: current every day smokerAdvised to Quit/Tobacco Education: YesCurrent Problems: Tobacco use (ICD- 305.1) (NIM70-T80.0)Dental caries (ICD-521.00) (PXQ54-H63.9)Teeth extraction (ICD-525.10) (NGN92-X94.499)Dyspepsia (ICD-536.8) (STR50-G64)Depression (ICD- 311) (FJM27-X67.9)Obesity (ICD-278.00) (ARS68-C14.09)DENTAL CARIES EXTENDING INTO PULP (ICD-521.03) (HKV92-T90.63) Dental Chart: Procedures:Type - CDT Code - Description B - (D0120) Periodic oral evaluation - established patient (Performed by Hattie Schwartz DMD) B - (D1110) Prophylaxis, adult (Performed by Rosalia Sanford RDH) B - (D0274) Bitewings, 4 radiographic images (Performed by Rosalia Sanford RDH) Existing:Type - CDT Code - Description[E] Chipped On #14 Surface L Chart Alert:uhc Prophy 1 per 6 month periodchild through age 12adult 13+next avail has an apt 05/14/2016Exam 1 per 6 month periodnext avail has an apt 05/14/2016Fl2 1 per 6 month periodthrough age 20next avail Bwx 4 films per 6 month periodnext avail 05/14/2016Panorex 1 every 3 yearsnext avail fmx taken 03/20/2015Sealants every 5 yearsage 5-15pre authorization needed for perio with charting and fmx Chart Notes:iveth (Aug 13 2019 1:51PM): [place]-GoodAdult prophy, 4BW'sPt states she is brushing bid, and flosing QD. Trace biofilm/calculus. Tissue pink and stippled;minimal bleeding with hand scaling. Several watches from previous visits.Pt was seen by Dr Kc and had #18 extraced, but felt like #19 was sharp after. #[address] Schwartz smoothed out the existed filling.Med Hx reviewed with pt- no changes. 6 month recall. Exc pt. Rosalia Sanford RDH by iveth (08/13/2019 1:23 PM): ; jono (Aug 13 2019 2:02PM): [facility](-). CC: none. Reviewed Xrays. Exam: no caries detected, smoothed #19 DOL due to chip from ext. OCS: WNL, IO/ EO completed, No significant hard findings upon clinical exam Pt was cooperative.OHI givenReferral: N/ANV:recallRosalia Sanford RDH by jono (08/13/2019 2:02 PM): Tooth Notes and Watches:- Tooth 11 Watch: Marisel Geronimo by vonnie (05/14/2016 10:09 AM): - Tooth 18 Note: Pt is aware but can't afford crown right. Will opt for extraction when the tooth begins to bother her.Marisel Robertson by vonnie (05/14/2016 10:12 AM): Per Dr Alcaraz pt will not benefit from a crown at this point, and will have a filling placed for now. Rosalia Sanford by iveth (03/22/2018 7:58 AM): - Tooth 2 Note: Kaylen Pascual by jean carlos (03/20/2015 10:42 AM): Tooth is not causing problems, will continue to monitor.Rosalia Sanford by iveth (09/20/2018 7:58 AM): - Tooth 6 Watch: MesRosalia Ward (09/15/2017 7:45 AM): - Tooth 7 Watch: MesialRosalia Sanford (09/15/2017 7:46 AM): - Tooth 8 Watch: DistalRosalia Sanford (09/15/2017 7:46 AM): Assessment & Plan Allergies:No Known Allergies (updated 08/13/2019) Clinical Visit Summary DeclinedSmoking, Tobacco or Smoke Exposure StatusSmoke Status: current every day smokerTobacco Use: YesAdv to Quit: YesClinical List ReviewProblem ReviewProblem List was reviewed and/or updated during this visit.Medication Reconciliation & ReviewMedication List was reviewed and/or updated during this visit, including review of any [id number] medications, herbal therapies, and/or supplements.Allergy ReviewAllergy List was reviewed and/or updated during this visit. Name Value Range Interpretation Code Description Data Karin rce(s) Supporting Document(s) Procedure Social History Code Duration Value Status Description Data Source(s ) Smoking 06/04/2020 12:00:00 AM EST Current Smoker completed Curre nt Smoker eCW1 ([facility]) Vital Signs ID Date Data Source UNK Name Value Range Interpretation Code Description Data Source(s) Body mass index (BMI) [Ratio] 31.8 kg/m2 31.8 k g/m2 MEDENT ([facility], [facility]) Body height 66 [in_i] 66 [in_i] MEDENT ([facility], [facility]) 5'6" Body weight 197.00 [lb_av] 197.00 [lb_av] MEDEN T ([facility], [facility]) Body temperature 983.0 [degF] 983.0 [degF] MEDE NT ([facility], [facility]) Oxygen saturation in Arterial blood by Pulse oximetry 99 % 99 % [facility] rate 16 /min 16 /[facility] Heart rate 96 /min 96 /min MEDENT ([facility]) Diastolic blood pressure 90 mm[Hg] 90 mm[Hg] MEDENT ([facility], [facility]) Systolic blood pressure 130 mm[Hg] 130 mm[Hg] M EDENT ([facility], [facility]) Body mass index (BMI) [Ratio] 31.8 kg/m2 31.8 k g/m2 MEDENT ([facility], [facility]) Body height 66 [in_i] 66 [in_i] MEDENT ([facility], [facility]) 5'6" Body weight 197.00 [lb_av] 197.00 [lb_av] MEDEN T ([facility], [facility]) Body temperature 97.5 [degF] 97.5 [degF] MEDENT ([facility], [facility]) Oxygen saturation in Arterial blood by Pulse oximetry 98 % 98 % MEDENT ([facility], [facility]) Respiratory rate 16 /min 16 /min MED[facility] ( [facility], [facility]) Heart rate 78 /min 78 /min MEDENT ([facility]) Diastolic blood pressure 80 mm[Hg] 80 mm[Hg] MEDENT ([facility], [facility]) Systolic blood pressure 138 mm[Hg] 138 mm[Hg] M EDENT ([facility], [facility]) Diastolic blood pressure 80 mm[Hg] 80 mm[Hg] eCW1 ([facility]) Systolic blood pressure 124 mm[Hg] 124 mm[Hg] e CW1 ([facility]) Body mass index (BMI) [Ratio] 34.34 kg/m2 34.34 kg/m2 W1 ([facility]) Body height 65 [in_i] 65 [in_i] eCW1 ([facility]) Body weight 93.62 kg 93.62 kg W1 ([facility]) Body weight 206.4 [lb_av] 206.4 [lb_av] [facility]CW[facility] Body mass index (BMI) [Ratio] 37.1 kg/m2 37.1 k g/m2 MEDENT ([facility], [facility]) Body height 66 [in_i] 66 [in_i] MEDENT ([facility], [facility]) 5'6" Body weight 230.00 [lb_av] 230.00 [lb_av] MEDEN T ([facility], [facility]) Body temperature 98.7 [degF] 98.7 [degF] MEDENT ([facility], [facility]) Oxygen saturation in Arterial blood by Pulse oximetry 97 % 97 % MEDENT ([facility], [facility]) Respiratory rate 18 /min 18 /min MEDENT ( [facility]) Heart rate 77 /min 77 /min [facility] ([facility]) Diastolic blood pressure 85 mm[Hg] 85 mm[Hg] [facility] ([facility], [facility]) Systolic blood pressure 120 mm[Hg] 120 mm[Hg] [facility] ([facility], [facility])
--- OUTSIDE RECORDS SUMMARY | 2020-09-03 00:34 | CCD ---
Author Author [employer] Organization [employer] Address Unknown Phone Unavailable Care Team Providers Care Android Platform Developer Name Role Phone Keshawn Redmond Unavailable PROBLEMS No Information ALLERGIES No Known Allergies ENCOUNTERS from 1985 to 2020-06-25 Encounter Location Date Provider Diagnosis [facility] [address] [place] [id number] May, Keshawn Redmond Encounter for annual routine gynecological examination Z01.419 and STD exposure Z20.2 IMMUNIZATIONS No Information SOCIAL HISTORY Tobacco Use: Social History Observation Description Date Details (start date - stop date) Current Smoker Sex Assigned At : Social History Observation Description Sex Assigned At Unknown Sexual Hx: Question Answer Notes Had sex in the last 12 months (vaginal, oral, or anal)? Yes Have you ever had an STD? Yes with Men only Use protection? No Herpes? Yes Alcohol Screening: Question Answer Notes Did you have a drink containing alcohol in the past year? No Points 0 Interpretation Negative Tobacco Use: Question Answer Notes Are you a: current smoker REASON FOR REFERRAL No Information VITAL SIGNS Weight 206.4 lbs May, Weight-kg 93.62 kg May, Height 65 in May, BMI 34.34 kg/m2 May, Blood pressure systolic 124 mm Hg May, Blood pressure diastolic 80 mm Hg May, MEDICATIONS No Known Medications PROCEDURES No Information RESULTS REASON FOR VISIT Pap MEDICAL (GENERAL) HISTORY Type Description Date Surgical History Surgical History Tubal Hospitalization History Childbirth Goals Section No Information Health Concerns No Information MEDICAL EQUIPMENT No Information MENTAL STATUS No Information FUNCTIONAL STATUS No Information ASSESSMENTS Encounter Date Diagnosis Assessment Notes Treatment Notes Treatm ent Clinical Notes May, Encounter for annual routine gynecological examination (ICD-10 - Z01.419) May, STD exposure (ICD-10 - Z20.2) PLAN OF TREATMENT Treatment Notes Test Name Order Date CHLAMYDIA & GC DNA AMPLIFICAT 2020-06-25 PAP REQUEST FOR SERVICE 2020-06-25 Insurance Providers Payer Name Payer Address Payer Phone Insured Name Patient Relati onship to Insured Coverage Start Date Coverage End Date [facility] [address] [facility] [id number] KELLY MARTINO self
--- OUTSIDE RECORDS SUMMARY | 2020-09-03 00:34 | CCD | Continuity of Care Document ---
Author Author Jacki VERONICA Organization Unknown Address [address] [place] [address] [place] [address] Phone [phone] Care Team Providers Care Cassandra Developer Name Role Phone No PCP AUTM Unavailable [place] [facility] [phone] Problems Description No Information Available Social History [...] H/L Range Note Laboratory test finding 02/16/2020 [facility] [address] [place] [address] [phone] Urine Culture FULL REPORT IN L <SEE [...] viral communicable diseases Office Visit 02/16/2020 2:15p [facility] [place] R10.30 Lower abdominal [...]
--- OUTSIDE RECORDS SUMMARY | 2020-09-03 00:34 | CCD | Continuity of Care Document ---
Author Author Jacki VERONICA Organization Unknown Address [address] [place] [address] [place] [address] Phone [phone] Care Team Providers Care Ribbon Cleaner Name Role Phone No PCP AUTM Unavailable [place] [employer] [facility] [phone] Problems Description No Information Available Social History [...] H/L Range Note Laboratory test finding 02/16/2020 [id number] [place] [address] [phone] Urine Culture FULL REPORT IN L <SEE [...]
[2020-09-03] MEDS ORDERED: NS 1,000 ML IV ONE (01:30)
[2020-09-03 01:59] LABS: BASO # 0.1 10^3/uL (0.0-0.2); BASO % 0.8 % (0.0-1.0); EOS # 0.2 10^3/uL (0.0-0.5); EOS % 1.7 % (0.0-3.0); HEMATOCRIT 44.1 % (36.0-47.0); HEMOGLOBIN 14.3 g/dl (12.0-15.5); LYMPH # 2.3 10^3/uL (1.5-5.0); LYMPH % 26.1 % (24.0-44.0); MEAN CORPUSCULAR HGB CONC 32.4 g/dl (32.0-36.5); MEAN CORPUSCULAR VOLUME 92.5 fl (80.0-96.0); MONO # 0.7 10^3/uL (0.0-0.8); MONO % 7.7 % (2.0-8.0); NEUTROPHILS # 5.7 10^3/uL (1.5-8.5); NEUTROPHILS % 63.5 % (36.0-66.0); PLATELET COUNT, AUTOMATED 293 10^3/uL (150-450); RED BLOOD COUNT 4.77 10^6/uL (4.00-5.40)
[2020-09-03 02:26] LABS: HCG, SERUM QUALITATIVE NEGATIVE (NEGATIVE)
[2020-09-03 02:29] LABS: ALBUMIN 3.8 GM/DL (3.2-5.2); ALT/SGPT 16 U/L (12-78); BILIRUBIN,DIRECT < 0.1 MG/DL (0.0-0.2); BILIRUBIN,TOTAL 0.2 MG/DL (0.2-1.0); BLOOD UREA NITROGEN 14 MG/DL (7-18); CARBON DIOXIDE LEVEL 30 MEQ/L (21-32); CHLORIDE LEVEL 107 MEQ/L (98-107); CK-MB VALUE MASS < 1.0 NG/ML (<3.6); CPK CREATINE PHOSPHOKINASE 53 U/L (26-192); CREATININE FOR GFR 0.91 MG/DL (0.55-1.30); GLOMERULAR FILTRATION RATE > 60.0 (>60); GLUCOSE, FASTING 95 MG/DL (70-100); LIPASE 87 U/L (73-393); MB/CK RELATIVE INDEX 1.89 (< OR =4); POTASSIUM SERUM 3.6 MEQ/L (3.5-5.1); SODIUM LEVEL 144 MEQ/L (136-145); TOTAL PROTEIN 7.3 GM/DL (6.4-8.2); TROPONIN I < 0.02 NG/ML (< 0.10)
--- OUTSIDE RECORDS SUMMARY | 2020-09-03 02:32 | CCD ---
Author Author [facility] Organization [facility] Address Unknown Phone Unavailable Care Team Providers Care Residential Worker Name Role Phone [place], JLAM Unavailable Unavailable [...] Unavailable Unavailable RoblesBc MD Unavailable Unavailable Bc Rboles MD Unavailable Unavailable Bc Robles MD Unavailable [...] Unavailable Unavailable JEREMÍAS, MERCEDES PA Unavailable Unavailable JERMEÍAS, MERCEDES PA Unavailable Unavailable JEREMÍAS, MERCEDES PA Unavailable Unavailable JEREMÍAS, MERCEDES PA Unavailable Unavailable JEREMÍAS, MERCEDES PA Unavailable Unavailable JEREMÍAS, MERCEDES PA Unavailable Unavailable JEREMAÍS, MERCEDES PA Unavailable Unavailable JEREMÍAS, MERCEDES PA [...] is protected by Article 27-F of the [facility] Public Health law. If you continue you may have access to information: Regarding HIV / AIDS; Provided by facilities licensed or operated by the [facility] Office of Mental Health; or Provided by the [facility] Office for People With Developmental Disabilities. If such information is present, then the following [facility] mandated warning applies: This information has [...] law may result in a fine or fpc sentence or both. A general authorization for the release of medical or other information is NOT sufficient authorization for further disc losure. Allergies and Adverse Reactions Type Description Substance Reaction Status Data Source(s ) No Known Drug Allergies No Known Drug Allergies [facility] Family History Family Member Name Family Member Gender Family Member Status Date o f Status Description Data Source(s) Unknown Unknown Problem [facility] ([facility] ) Unknown Male Problem [facility] ([facility]) Father Unknown Unknown Problem [facility] ([facility]) Encounters Encounter Providers Location Date Indications Data Source(s ) Outpatient Attender: MERCEDES Kincaid ry 07/30/2020 09:00:00 AM EST MED[facility] ([facility] Outpatient Attender: MERCEDES Kincaid ry 07/24/2020 07:45:00 AM EST [facility] ([facility]) [place] [address] [address] 06/04/2020 12:00:00 AM EST eCW1 ([facility]) Outpatient Attender: Keli ROCHA 04/03/2020 09:03:01 A M [facility] Outpatient Attender: Keli ROBLES 03/12/2020 09:19:00 A M [facility] Outpatient Attender: Keli ROBLES 03/12/2020 09:18:00 A M [facility] Outpatient Attender: Keli ROBLES 02/20/2020 10:31:01 A [facility] 08:20:03 AM [facility] Out[facility] Attender: [facility] 02/19/2020 07:45:[address] [facility] Outpatient Att[facility]: [facility] 02/19/2020 07:44:[address] [facility] Outpatient Att[facility]: [facility] 02/19/2020 07:32:[address] [facility] Outpatient Att[facility] 02/19/2020 12:02:[address] [facility] Outpatient Att[facility] 02/18/2020 01:31:[address] [facility] Outpatient Attender[facility] 02/18/2020 11:20:[address] [facility] Outpatient Attender: Keli Alcaraz [facility] 02/18/2020 11:18:[address] [facility] Outpatient Attender: LAUREN Massey 02/16/2020 02:15:00 PM EDT [facility] ([facility]) Outpatient Attender: Keli Lissa [facility] 08/13/2019 02:11:01 P [facility] Outpatient Attender: Keli Lissa [facility] 08/13/2019 02:09:02 P [facility] Outpatient Attender: Keli Lissa [facility] 08/13/2019 02:08:00 P [facility] Outpatient Attender: Keli Soosmany [facility] 08/13/2019 02:07:01 P [facility] Outpatient Attender: Filipe Robles MD 08/13/2019 02:03:00 PM [facility] Outpatient Attender: Filipe Robles MD 08/13/2019 01:05:00 PM [facility] Outpatient Attender: Filipe Robles MD 07/19/2019 01:08:01 PM [facility] Outpatient Attender: Eun Chavez MDConsultant: Kenyatta HERBERT 10/25/2018 08:52:24 AM EDT - 10/25/2018 08:52:00 AM EDT [facility] Admission cancelled. Disregard status an d admitted date. Medications Medication Brand Name Start Date Product Form Dose Route Admi nistrative Instructions Pharmacy Instructions Status Indications Reaction Description Data Source(s) Prednisone 20 MG Oral Tablet Prednisone 07/30/2020 12:00:00 AM EST ORAL active MED[facility] ([facility]) 20 mg 07/30/2020 12:00:00 AM EST tablet 8 2 TABLETS BY MOUTH DAILY FOR 4 DAYS 2 TABLETS BY MOUTH DAILY FOR 4 DAYS SOLD: 07/30/2020 [facility] No Active Medications 02/19/2020 12:00:00 AM EDT completed MEDENT ([facility], [facility]) 200 mg 02/16/2020 12:00:00 AM EDT tablet 9 TAKE ONE TABLET BY MOUTH THREE TIMES A DAY WITH FOOD NEEDED FOR SYMPTOMS TAKE ONE TABLET BY MOUTH THREE TIMES A DAY WITH FOOD NEEDED FOR SYMPTOMS SOLD: 02/19/2020 [facility] Phenazopyridine hydrochloride 200 MG Oral Tablet [Pyridium] Pyridium 02/16/2020 12:00:00 AM EDT ORAL completed [facility] ([facility]) No Active Medications 02/16/2020 12:00:00 AM EDT completed [facility] ([facility]) Insurance Providers Payer name Policy type / Coverage type Policy ID Covered libertarian ID Covered libertarian's relationship to ortiz Policy Ortiz Plan Information [facility] [id number] SP [id number] [facility] [id number] SP [id number] [facility] Essential Plan P UNAVAILABLE S UNAVAILABLE UNHC COMMUNITY PLAN [facility] [id number] SP [id number] Self Pay P UNAVAILABLE S UNAVAILA BLE D [facility] CHP/Essential Plan S [id number] S [id number] Managed Care - [facility] Community Plan P [id number] S [id number] Medicaid S [id number] S [id number] 200 [facility] I [id number] Self [id number] [facility] COMMUNTY PLAN [id number] 18 [id number] [facility] COMMUNITY PLAN XIX [id number] 18 [id number] [facility] Communty Plan Medicaid [id number] Self [id number] [facility] Health Maintenance Organization (HMO) [id number] Self [id number] [facility] COMMUNITY PLAN [facility] [id number] SP [id number] [facility] Communty Plan Medicaid [id number] Self [id number] [facility] Communty Plan Medicaid [id number] Self [id number] Managed Care - Community Plan [facility] P [id number] S [id number] [facility] KELLY MARTINO 18 KELLY MARTINO [employer] Commercial [id number] Self [id number] [facility] Commercial [id number] Self [id number] [facility](MCAID) O [id number] S [id number] [employer] [facility] Commercial [id number] Self [id number] Managed Care Whiteface P [id number] S [id number] Medicaid S [id number] S [id number] [facility] [place] [id number] 18 [id number] [facility] [place] [id number] 18 [id number] [facility] [place] [id number] 18 [id number] HERI [id number] SP [id number] 200 HERI [id number] SP [id number] [facility] [place] MC Commercial [id number] Self [id number] [facility] [place] [id number] 18 [id number] [facility] [place] O [id number] S [id number] [place] Medig[place] Part B [id number] Self [id number] [facility] [place] Medicaid [id number] Self [id number] Managed Care Heri P [id number] S [id number] Medicaid S [id number] S [id number] Managed Care - Community Plan [facility] P [id number] S [id number] [facility] Medicaid Medicaid [id number] Self [id number] [facility] Health Maintenance Organization (HMO) [phone] Self [id number] Medicaid Dental S [id number] S [id number] Managed Care [facility] P [id number] S [id number] Medicaid Dental S UNAVAILABLE S UN AVAILABLE UNHC COMMUNITY PLAN MCDHMO UNAVAILABLE SP UNAVAILABLE BLUE CROSS MATTHEW PLAN [id number] SP [id number] EXCELL[employer] BCBS P [id number] S [id number] EXCELLUS BCBS P UNAVAILABLE S UNAV AILABLE HMO BLUE [id number] SP [id number] MEDICAID [id number] SP [id number] Results ID Date Data Source [id number] 07/24/2020 12:00:00 AM EST [place] Name Value Range Interpretation Code Description Data Karin rce(s) Supporting Document(s) SARS coronavirus 2 Ag Negative [place] This lab was ordered by [facility] and reported by [facility]. ID Date Data Source SYPHILIS ANTIBODY (RPR SCREEN) 06/04/2020 12:00:00 AM EST eC W1 ([facility]) Name Value Range Interpretation Code Description Data Karin rce(s) Supporting Document(s) NONREACTIVE NONREACTIVE eCW1 ([facility]) ID Date Data Source [id number] 06/04/2020 12:00:00 AM EST eCW1 ([facility]) Name Value Range Interpretation Code Description Data Karin rce(s) Supporting Document(s) eCW1 ([facility]) ID Date Data Source HEPATITIS C ANTIBODY INDEX 06/04/2020 12:00:00 AM EST eCW1 ( [facility]) Name Value Range Interpretation Code Description Data Karin rce(s) Supporting Document(s) < 0.0 <0.8 eCW1 ([facility]) ID Date Data Source [id number] 02/19/2020 07:30:[address] [facility] Vital SignsBlood Pressure: 128/78 Patient History Medical History:depressionanxietySurgical History: 2012Family History:Cancer - Breast and cervical (Maternal Grandmother)Social/Personal History: Smoking Status: current every day smokerDo you vape? NoCurrent Problems: Tobacco use (ICD-305.1) (RIQ70-G31.0)Dental caries (ICD-521.00) (LIK12-F82.9)Teeth extraction (ICD-525.10) (PGI04-L82.499)Dyspepsia (ICD-536.8) (ICD10- K30)Depression (ICD-311) (PYT75-G14.9)Obesity (ICD-278.00) (NWH65-B45.09)DENTAL CARIES EXTENDING INTO PULP (ICD-521.03) (EFF77-C26.63)Problem list reviewed during this update.Medication list reviewed [...] fmx Chart Notes:damian (Feb 19 2020 8:19AM): [facility](-). CC: none. Reviewed Xrays. Exam: no [...] rce(s) Supporting Document(s) ID Date Data Source [id number] 02/16/2020 02:57:00 PM EDT MEDENT ([facility], [facility]) Name Value Range Interpretation Code Description Data Karin rce(s) Supporting Document(s) Bacteria identified in Urine by Culture Laboratory test result MED[facility] ([facility], [facility]) FULL REPORT IN LAB NOTES (eCW and [facility] ). NO GROWTH CLINICAL SIGNIFICANCE 2 OR MORE ORGANISMS ID Date Data Source [id number] 08/13/2019 01:08:38 PM [facility] Patient History Social/Personal History: Smoking Status: current every day smokerAdvised to Quit/Tobacco Education: YesCurrent Problems: Tobacco use (ICD- 305.1) (MSL26-O89.0)Dental caries (ICD-521.00) (PCD23-B30.9)Teeth extraction (ICD-525.10) (CUG02-I34.499)Dyspepsia (ICD-536.8) (RFQ02-N36)Depression (ICD- 311) (SDQ64-K41.9)Obesity (ICD-278.00) (BAB66-Q59.09)DENTAL CARIES EXTENDING INTO PULP (ICD-521.03) (EGN05-I52.63) Dental Chart: Procedures:Type - CDT Code - [...] PM): ; jono (Aug 13 2019 2:02PM): [facility](-). CC: none. Reviewed Xrays. Exam: no [...] during this visit, including review of any [id number]-noc-uuinriq medications, herbal therapies, and/or supplements.Allergy ReviewAllergy List was reviewed and/or updated during this visit. Name Value Range Interpretation Code Description Data Karin rce(s) Supporting Document(s) Procedure Social History Code Duration Value Status Description Data Source(s ) Smoking 06/04/2020 12:00:00 AM EST Current Smoker completed Curre nt Smoker eCW1 ([facility]) Vital Signs ID Date Data Source UNK Name Value Range Interpretation Code Description Data Source(s) Body mass index (BMI) [Ratio] 31.8 kg/m2 31.8 k g/m2 MEDENT ([facility], [facility]) Body height 66 [in_i] 66 [in_i] MEDENT ([facility], [facility]) 5'6" Body weight 197.00 [lb_av] 197.00 [lb_av] MEDEN T ([facility], [facility]) Body temperature 983.0 [degF] 983.0 [degF] MEDE NT ([facility], [facility]) Oxygen saturation in Arterial blood by Pulse oximetry 99 % 99 % [facility]) Respiratory rate 16 /min 16 /min [facility]) Heart rate 96 /min 96 /min MED[facility] ([facility]) Diastolic blood pressure 90 mm[Hg] 90 mm[Hg] MED[facility] ([facility], [facility]) Systolic blood pressure 130 mm[Hg] 130 mm[Hg] M EDENT ([facility], [facility]) Body mass index (BMI) [Ratio] 31.8 kg/m2 31.8 k g/m2 MED[facility] ([facility], [facility]) Body height 66 [in_i] 66 [in_i] MEDENT ([facility], [facility]) 5'6" Body weight 197.00 [lb_av] 197.00 [lb_av] MEDEN T ([facility], [facility]) Body temperature 97.5 [degF] 97.5 [degF] MED[facility] ([facility], [facility]) Oxygen saturation in Arterial blood by Pulse oximetry 98 % 98 % [facility] ([facility], [facility]) Respiratory rate 16 /min 16 /min [facility] ( [facility]) Heart rate 78 /min 78 /min MED[facility] ([facility]) Diastolic blood pressure 80 mm[Hg] 80 mm[Hg] [facility] ([facility], [facility]) Systolic blood pressure 138 mm[Hg] 138 mm[Hg] M EDENT ([facility], [facility]) Diastolic blood pressure 80 mm[Hg] 80 mm[Hg] eCW1 ([facility]) Systolic blood pressure 124 mm[Hg] 124 mm[Hg] e CW1 ([facility]) Body mass index (BMI) [Ratio] 34.34 kg/m2 34.34 kg/m2 W1 ([facility]) Body height 65 [in_i] 65 [in_i] eCW1 ([facility]) Body weight 93.62 kg 93.62 kg W1 ([facility]) Body weight 206.4 [lb_av] 206.4 [lb_av] eCW1 ([facility]) Body mass index (BMI) [Ratio] 37.1 kg/m2 37.1 k g/m2 MED[facility] ([facility], [facility]) Body height 66 [in_i] 66 [in_i] MEDENT ([facility], [facility]) 5'6" Body weight 230.00 [lb_av] 230.00 [lb_av] MEDEN T ([facility], [facility]) Body temperature 98.7 [degF] 98.7 [degF] MED[facility] ([facility], [facility]) Oxygen saturation in Arterial blood by Pulse oximetry 97 % 97 % [facility] ([facility], [facility]) Respiratory rate 18 /min 18 /min MEDENT ( [facility]) Heart rate 77 /min 77 /min [facility] ([facility]) Diastolic blood pressure 85 mm[Hg] 85 mm[Hg] [facility] ([facility], [facility]) Systolic blood pressure 120 mm[Hg] 120 mm[Hg] [facility] ([facility], [facility])
[2020-09-03 04:04] VITALS: BP 133/91
--- NOTE | 2020-09-03 07:30 | ECGEPIP ---
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
== END 2020-09-03 04:17 | disposition home or self-care (01) ==
LOC: M ED 00:27
DX: I95.1 Orthostatic hypotension (principal); E86.0 Dehydration; F41.1 Generalized anxiety disorder; F17.210 Nicotine dependence, cigarettes, uncomplicated

== ENCOUNTER 2020-11-20 21:40 | Emergency (ER) | payer OTHER, MEDICAID ==
[~2020-11-20] VITALS: Ht 167.6 cm; Wt 77.2 kg
[2020-11-21 00:43] VITALS: BP 153/85
[2020-11-21] MEDS ORDERED: FLAG500T PO (02:47)
[2020-11-21] MEDS ORDERED: metroNIDAZOLE (FLAGYL) 500MG TABLET PO ONE (02:50)
[2020-11-21 11:32] LABS: HIV 1&2 SCREEN CENTAUR NEGATIVE (NEGATIVE)
== END 2020-11-21 03:14 | disposition home or self-care (01) ==
LOC: M ED 21:40
DX: N76.0 Acute vaginitis (principal); F17.200 Nicotine dependence, unspecified, uncomplicated

== ENCOUNTER 2021-04-19 22:52 | Emergency (ER) | payer OTHER, MEDICAID ==
[~2021-04-19] VITALS: Ht 167.6 cm; Wt 73.2 kg
[2021-04-19 22:52] VITALS: BP 166/95
[~2021-04-19 22:52] MED LIST changes: +FLAG500T PO
== END 2021-04-19 23:41 | disposition left against medical advice (07) ==
LOC: M ED 22:52
DX: Z53.21 Procedure and treatment not carried out due to patient leaving prior to being seen by health care provider (principal)

== ENCOUNTER 2021-12-27 17:23 | Inpatient (IN) | payer OTHER, MEDICAID ==
[~2021-12-27] VITALS: Ht 165.1 cm; Wt 73.2 kg
[2021-12-27 17:59] LABS: BASO % 0.6 % (0.0-1.0); EOS # 0.1 10^3/uL (0.0-0.5); EOS % 1.6 % (0.0-3.0); HEMATOCRIT 37.3 % (36.0-47.0); HEMOGLOBIN 12.2 g/dl (12.0-15.5); LYMPH # 2.1 10^3/uL (1.5-5.0); LYMPH % 33.6 % (24.0-44.0); MEAN CORPUSCULAR HEMOGLOBIN 28.6 pg (27.0-33.0); MEAN CORPUSCULAR HGB CONC 32.7 g/dl (32.0-36.5); MEAN CORPUSCULAR VOLUME 87.4 fl (80.0-96.0); MONO # 0.4 10^3/uL (0.0-0.8); MONO % 6.2 % (2.0-8.0); NEUTROPHILS # 3.6 10^3/uL (1.5-8.5); NEUTROPHILS % 57.4 % (36.0-66.0); PLATELET COUNT, AUTOMATED 428 10^3/uL (150-450); RED BLOOD COUNT 4.27 10^6/uL (4.00-5.40); WHITE BLOOD COUNT 6.3 10^3/uL (4.0-10.0)
[2021-12-27 18:32] LABS: CK-MB VALUE MASS < 1.0 NG/ML (<3.6); CPK CREATINE PHOSPHOKINASE 37 U/L (26-192); HCG, SERUM QUALITATIVE NEGATIVE (NEGATIVE)
[2021-12-27 18:45] LABS: ACETAMINOPHEN LEVEL < 2.0 UG/ML (10.0-30.0); ALBUMIN 3.3 GM/DL (3.2-5.2); ALT/SGPT 13 U/L (12-78); BILIRUBIN,DIRECT 0.1 MG/DL (0.0-0.2); BILIRUBIN,TOTAL 0.4 MG/DL (0.2-1.0); BLOOD UREA NITROGEN 12 MG/DL (7-18); CARBON DIOXIDE LEVEL 27 MEQ/L (21-32); CHLORIDE LEVEL 109 MEQ/L (98-107); CREATININE FOR GFR 0.75 MG/DL (0.55-1.30); ETHYL ALCOHOL (ETHANOL) < 0.003 % (0.000-0.010); GLOMERULAR FILTRATION RATE > 60.0 (>60); GLUCOSE, FASTING 89 MG/DL (70-100); POTASSIUM SERUM 4.1 MEQ/L (3.5-5.1); SALICYLATE LEVEL < 1.7 MG/DL (5.0-30.0); SODIUM LEVEL 143 MEQ/L (136-145); TOTAL PROTEIN 6.7 GM/DL (6.4-8.2)
[2021-12-27 18:46] LABS: RSV AMPLIFICATION NEGATIVE (NEGATIVE)
[2021-12-27] MEDS ORDERED: ONDANSETRON 4MG/2ML VIAL IV ONE (19:30)
[2021-12-27] MEDS ORDERED: HOME MED LIST COMPLETE! XX SCH (19:35)
[2021-12-27 21:22] LABS: ABG BASE EXCESS 1.9 (-2.0-2.0); ABG HCO3 27.4 MEQ/L (22.0-26.0); ABG O2 SATURATION 98.8 % (95.0-99.0); ABG PARTIAL PRESSURE CO2 46.6 mmHg (35.0-45.0); ABG PARTIAL PRESSURE O2 127.5 mmHg (75.0-100.0); ABG STANDARD HCO3 26.2 MEQ/L (22.0-26.0); ABG TOTAL CO2 28.9 MEQ/L (22.0-29.0); ABG pH (ARTERIAL) 7.388 UNITS (7.350-7.450)
[2021-12-27] MEDS: NS 1,000 ML IV SCH (21:23)
[2021-12-27 23:00] VITALS: BP 164/106
[2021-12-28] VITALS (8 sets, daily range): BP systolic 126–151; BP diastolic 81–94; O2SAT 87–100
[2021-12-28 06:11] LABS: BLOOD UREA NITROGEN 11 MG/DL (7-18); CARBON DIOXIDE LEVEL 27 MEQ/L (21-32); CHLORIDE LEVEL 108 MEQ/L (98-107); CREATININE FOR GFR 0.63 MG/DL (0.55-1.30); GLOMERULAR FILTRATION RATE > 60.0 (>60); GLUCOSE, FASTING 73 MG/DL (70-100); POTASSIUM SERUM 3.9 MEQ/L (3.5-5.1); SODIUM LEVEL 141 MEQ/L (136-145)
[2021-12-28] MEDS: NS 1,000 ML IV SCH ×2 (07:33→17:16)
[2021-12-28 08:50] LABS: AMPHETAMINES LEVEL URINE POSITIVE (NEGATIVE); BARBITURATES URINE NEGATIVE (NEGATIVE); BENZODIAZEPINES URINE NEGATIVE (NEGATIVE); CANNABINOIDS URINE NEGATIVE (NEGATIVE); COCAINE METABOLITE URINE NEGATIVE (NEGATIVE); METHADONE URINE NEGATIVE (NEGATIVE); OPIATES URINE NEGATIVE (NEGATIVE); PHENCYCLIDINE URINE NEGATIVE (NEGATIVE)
[2021-12-29] VITALS (11 sets, daily range): BP systolic 124–138; BP diastolic 77–89; O2SAT 97–100
[2021-12-29] MEDS: NS 1,000 ML IV SCH (03:41)
[2021-12-29 07:55] LABS: BASO # 0.1 10^3/uL (0.0-0.2); BASO % 1.1 % (0.0-1.0); EOS # 0.1 10^3/uL (0.0-0.5); HEMATOCRIT 34.7 % (36.0-47.0); HEMOGLOBIN 11.4 g/dl (12.0-15.5); LYMPH # 3.2 10^3/uL (1.5-5.0); MEAN CORPUSCULAR HEMOGLOBIN 28.5 pg (27.0-33.0); MEAN CORPUSCULAR HGB CONC 32.9 g/dl (32.0-36.5); MEAN CORPUSCULAR VOLUME 86.8 fl (80.0-96.0); MONO # 0.4 10^3/uL (0.0-0.8); MONO % 6.5 % (2.0-8.0); NEUTROPHILS # 2.8 10^3/uL (1.5-8.5); NEUTROPHILS % 42.2 % (36.0-66.0); PLATELET COUNT, AUTOMATED 375 10^3/uL (150-450); WHITE BLOOD COUNT 6.7 10^3/uL (4.0-10.0)
[2021-12-29 08:24] LABS: BLOOD UREA NITROGEN 7 MG/DL (7-18); CALCIUM LEVEL 8.8 MG/DL (8.5-10.1); CARBON DIOXIDE LEVEL 28 MEQ/L (21-32); CHLORIDE LEVEL 111 MEQ/L (98-107); CREATININE FOR GFR 0.59 MG/DL (0.55-1.30); GLOMERULAR FILTRATION RATE > 60.0 (>60); GLUCOSE, FASTING 80 MG/DL (70-100); POTASSIUM SERUM 4.5 MEQ/L (3.5-5.1); SODIUM LEVEL 143 MEQ/L (136-145)
== END 2021-12-29 10:17 | disposition home or self-care (01) | DRG 812 ==
LOC: M ED 17:23 → EDBD 17:23 → M ED INP 20:45 → ENRESERV 21:51 → M PCU 22:42
PROVIDERS: ADMIT Internal Medicine; ATTEND Internal Medicine
DX: T43.621A Poisoning by amphetamines, accidental (unintentional), initial encounter (principal); F17.210 Nicotine dependence, cigarettes, uncomplicated; Z20.822 Contact with and (suspected) exposure to COVID-19; F15.90 Other stimulant use, unspecified, uncomplicated

== ENCOUNTER 2022-09-04 00:20 | Emergency (ER) | payer MEDICAID, OTHER ==
[~2022-09-04] VITALS: Ht 162.6 cm; Wt 64.0 kg
[2022-09-04 00:22] VITALS: BP 160/110
== END 2022-09-04 01:57 | disposition left against medical advice (07) ==
LOC: M ED 00:20
DX: Z53.21 Procedure and treatment not carried out due to patient leaving prior to being seen by health care provider (principal)

== ENCOUNTER → 2022-10-12 | Outpatient (CLI) | payer OTHER, MEDICAID | LOC: M WHC 13:27 | PROVIDERS: ATTEND Physician Assistant Medical | DX: Z12.31 Encounter for screening mammogram for malignant neoplasm of breast (principal); N63.21 Unspecified lump in the left breast, upper outer quadrant ==

== ENCOUNTER 2023-04-17 21:08 | Inpatient (IN) | payer MEDICAID, OTHER ==
[~2023-04-17] VITALS: Ht 165.1 cm; Wt 68.2 kg
[2023-04-18 00:41] LABS: HEMATOCRIT 36.8 % (36.0-47.0); HEMOGLOBIN 12.5 g/dl (12.0-15.5); MEAN CORPUSCULAR HEMOGLOBIN 29.4 pg (27.0-33.0); MEAN CORPUSCULAR VOLUME 86.6 fl (80.0-96.0); PLATELET COUNT, AUTOMATED 372 10^3/uL (150-450); RED BLOOD COUNT 4.25 10^6/uL (4.00-5.40); WHITE BLOOD COUNT 7.3 10^3/uL (4.0-10.0)
[2023-04-18 00:53] LABS: BARBITURATES URINE NEGATIVE (NEGATIVE); BENZODIAZEPINES URINE NEGATIVE (NEGATIVE); CANNABINOIDS URINE NEGATIVE (NEGATIVE); COCAINE METABOLITE URINE NEGATIVE (NEGATIVE); METHADONE URINE NEGATIVE (NEGATIVE); OPIATES URINE NEGATIVE (NEGATIVE); PHENCYCLIDINE URINE NEGATIVE (NEGATIVE)
[2023-04-18 00:58] LABS: AMPHETAMINES LEVEL URINE POSITIVE (NEGATIVE)
[2023-04-18] MEDS: NYSTATIN 500,000U/5ML SUSP UDC SS SCH ×4 (01:12→20:17)
[2023-04-18 01:14] LABS: HCG, SERUM QUALITATIVE NEGATIVE (NEGATIVE)
[2023-04-18 01:24] LABS: ACETAMINOPHEN LEVEL < 2.0 UG/ML (10.0-20.0); ALBUMIN 4.1 G/DL (3.2-5.2); ALKALINE PHOSPHATASE 77 U/L (46-116); ALT/SGPT 57 U/L (7.0-40); AST/SGOT 38 U/L (<34); BILIRUBIN,DIRECT 0.3 MG/DL (<0.4); BILIRUBIN,TOTAL 0.7 MG/DL (0.3-1.2); BLOOD UREA NITROGEN 10 MG/DL (9-23); CALCIUM LEVEL 9.1 MG/DL (8.5-10.1); CARBON DIOXIDE LEVEL 23 MMOL/L (20-31); CHLORIDE LEVEL 109 MMOL/L (98-107); CREATININE FOR GFR 0.67 MG/DL (0.55-1.30); ETHYL ALCOHOL (ETHANOL) < 0.003 % (0.000-0.010); GLOMERULAR FILTRATION RATE > 60.0 (>60); GLUCOSE, FASTING 87 MG/DL (60-100); POTASSIUM SERUM 3.8 MMOL/L (3.5-5.1); SALICYLATE LEVEL < 3.0 MG/DL (<30); SODIUM LEVEL 139 MMOL/L (136-145); THYROID STIMULATING HORMONE 0.533 uIU/ML (0.55-4.78); TOTAL PROTEIN 7.5 G/DL (5.7-8.2)
[2023-04-18] MEDS ORDERED: MED REC CURRENTLY UNOBTAINABLE XX SCH (05:20)
[2023-04-18] MEDS ORDERED: HOME MED LIST COMPLETE! XX SCH (11:25)
[2023-04-18] MEDS ORDERED: ACETAMINOPHEN TAB 650MG DOSE (2X325MG) PO PRN (22:15)
[2023-04-18] MEDS ORDERED: IBUPROFEN 400MG TAB PO PRN (22:15)
[2023-04-18] MEDS ORDERED: diphenhydrAMINE 25MG CAP PO PRN (22:15)
[2023-04-18] MEDS ORDERED: MAALOX 30 ML SUSP *UDC PO PRN (22:15)
[2023-04-18] MEDS ORDERED: traZODone 50 MG TAB PO PRN (22:15)
[2023-04-18] MEDS ORDERED: MOM 30ML SUSPENSION UDC PO PRN (22:15)
[2023-04-19 00:02] VITALS: BP 136/78; TEMP 97.6; O2SAT 99
[2023-04-19 06:33] VITALS: BP 138/83; TEMP 98.5; O2SAT 99
[2023-04-19 14:18] LABS: FREE T4 1.31 NG/DL (0.89-1.76)
[2023-04-19 14:51] LABS: HEPATITIS B CORE ANTIBODY IGM NEGATIVE (NEGATIVE)
[2023-04-19 15:02] LABS: HEPATITIS C VIRUS ABY INDEX > 11.00 INDEX (<0.8)
[2023-04-19 18:02] VITALS: BP 132/89; TEMP 98.5; O2SAT 98
[2023-04-19] MEDS ORDERED: SERTRALINE HCL 25 MG TABLET PO SCH (21:00)
[2023-04-20 06:42] VITALS: BP 120/76; TEMP 97.6; O2SAT 99
[2023-04-20] MEDS ORDERED: SERT-141 PO (08:03)
[2023-04-20] MEDS ORDERED: HYDR-3363 PO (08:03)
[2023-04-20] MEDS ORDERED: NYST-38 SS (10:54)
== END 2023-04-20 09:43 | disposition home or self-care (01) | DRG 751 ==
LOC: M ED 21:08 → M ED INP 04-18 22:12 → M PSY 04-18 22:54
PROVIDERS: ADMIT Student in an Organized Health Care Education/Training Program; ATTEND Student in an Organized Health Care Education/Training Program
DX: F32.1 Major depressive disorder, single episode, moderate (principal); F41.1 Generalized anxiety disorder; F15.90 Other stimulant use, unspecified, uncomplicated; R74.01 Elevation of levels of liver transaminase levels; F17.210 Nicotine dependence, cigarettes, uncomplicated; E07.9 Disorder of thyroid, unspecified; R45.851 Suicidal ideations; B18.2 Chronic viral hepatitis C; Z56.0 Unemployment, unspecified; Z91.51 Personal history of suicidal behavior; Z91.410 Personal history of adult physical and sexual abuse; Z63.0 Problems in relationship with spouse or partner; Z86.74 Personal history of sudden cardiac arrest; Z20.822 Contact with and (suspected) exposure to COVID-19

== ENCOUNTER → 2023-08-23 | Outpatient (CLI) | payer MEDICAID, OTHER ==
[~2023-08-23] MED LIST changes: +HYDR-3363 PO; +NYST-38 SS; +SERT-141 PO
== END ==
LOC: M LAB 12:30 → M PLALAB 12:30
PROVIDERS: ATTEND Internal Medicine Infectious Disease
DX: B18.2 Chronic viral hepatitis C (principal); Z53.9 Procedure and treatment not carried out, unspecified reason

== ENCOUNTER → 2023-11-15 | Outpatient (CLI) | payer MEDICAID, OTHER | LOC: M LAB 11:23 | PROVIDERS: ATTEND Internal Medicine Infectious Disease | DX: B18.2 Chronic viral hepatitis C (principal) ==

== ENCOUNTER → 2023-11-17 | Outpatient (CLI) | payer OTHER | LOC: M LAB 16:50 | PROVIDERS: ATTEND Internal Medicine Infectious Disease | DX: B18.2 Chronic viral hepatitis C (principal) ==

== ENCOUNTER 2024-01-19 09:40 | Inpatient (IN) | payer MEDICAID, OTHER ==
[~2024-01-19] VITALS: Ht 167.6 cm; Wt 77.3 kg
[2024-01-19] MEDS ORDERED: SOFO1TAB PO (09:50)
[2024-01-19 10:40] LABS: HEMATOCRIT 38.3 % (36.0-47.0); HEMOGLOBIN 12.7 g/dl (12.0-15.5); MEAN CORPUSCULAR HEMOGLOBIN 29.9 pg (27.0-33.0); MEAN CORPUSCULAR HGB CONC 33.2 g/dl (32.0-36.5); MEAN CORPUSCULAR VOLUME 90.1 fl (80.0-96.0); PLATELET COUNT, AUTOMATED 270 10^3/uL (150-450); RED BLOOD COUNT 4.25 10^6/uL (4.00-5.40); WHITE BLOOD COUNT 6.7 10^3/uL (4.0-10.0)
[2024-01-19 11:05] LABS: HCG, SERUM QUALITATIVE NEGATIVE (NEGATIVE)
[2024-01-19 11:11] LABS: ETHYL ALCOHOL (ETHANOL) < 0.003 % (0.000-0.010)
[2024-01-19 11:13] LABS: ALBUMIN 3.9 G/DL (3.2-5.2); ALKALINE PHOSPHATASE 55 U/L (46-116); ALT/SGPT 10 U/L (7.0-40); AST/SGOT 15 U/L (<34); BILIRUBIN,DIRECT 0.1 MG/DL (<0.4); BILIRUBIN,TOTAL 0.6 MG/DL (0.3-1.2); BLOOD UREA NITROGEN 11 MG/DL (9-23); CALCIUM LEVEL 9.1 MG/DL (8.5-10.1); CARBON DIOXIDE LEVEL 23 MMOL/L (20-31); CHLORIDE LEVEL 110 MMOL/L (98-107); CREATININE FOR GFR 0.67 MG/DL (0.55-1.30); GLOMERULAR FILTRATION RATE > 60.0 (>60); GLUCOSE, FASTING 84 MG/DL (60-100); POTASSIUM SERUM 4.2 MMOL/L (3.5-5.1); SALICYLATE LEVEL < 3.0 MG/DL (<30); SODIUM LEVEL 140 MMOL/L (136-145)
[2024-01-19 11:15] LABS: THYROID STIMULATING HORMONE 1.034 uIU/ML (0.55-4.78)
[2024-01-19 11:26] LABS: AMPHETAMINES LEVEL URINE NEGATIVE (NEGATIVE); BARBITURATES URINE NEGATIVE (NEGATIVE); BENZODIAZEPINES URINE NEGATIVE (NEGATIVE); CANNABINOIDS URINE NEGATIVE (NEGATIVE); COCAINE METABOLITE URINE NEGATIVE (NEGATIVE); METHADONE URINE NEGATIVE (NEGATIVE); OPIATES URINE NEGATIVE (NEGATIVE); PHENCYCLIDINE URINE NEGATIVE (NEGATIVE)
[2024-01-19] MEDS ORDERED: HOME MED LIST COMPLETE! XX SCH (12:40)
[2024-01-19] MEDS ORDERED: diphenhydrAMINE 25MG CAP PO PRN (12:45)
[2024-01-19] MEDS ORDERED: OLANZapine ORAL DISINTEGRATING TAB 5MG PO PRN (12:45)
[2024-01-19] MEDS ORDERED: MAALOX 30 ML SUSP *UDC PO PRN (12:45)
[2024-01-19] MEDS ORDERED: MOM 30ML SUSPENSION UDC PO PRN (12:45)
[2024-01-19 13:50] VITALS: BP 119/71; TEMP 98.1; O2SAT 98
[2024-01-19] MEDS ORDERED: ENTER DRUG NAME HERE (PATIENT'S OWN MED) PO SCH (18:00)
[2024-01-19] MEDS: SOFOSBUVIR PO SCH (18:16)
[2024-01-19] MEDS: VELPATASVIR PO SCH (18:16)
[2024-01-19] MEDS: traZODone 50 MG TAB PO PRN (22:22)
[2024-01-20 06:13] VITALS: BP 124/80; TEMP 97.2; O2SAT 96
[2024-01-20 15:49] VITALS: BP 137/75; TEMP 98.3; O2SAT 99
[2024-01-21 06:12] VITALS: BP 125/74; TEMP 98.8; O2SAT 96
[2024-01-21] MEDS: ACETAMINOPHEN TAB 650MG DOSE (2X325MG) PO PRN (09:58)
[2024-01-21] MEDS: IBUPROFEN 400MG TAB PO PRN (11:59)
[2024-01-21 16:44] VITALS: BP 123/58; TEMP 98.5; O2SAT 97
[2024-01-22 06:01] VITALS: BP 156/93; TEMP 98.3; O2SAT 97
[2024-01-22 16:00] VITALS: BP 143/84; TEMP 98.4; O2SAT 99
[2024-01-22] MEDS: traZODone 100 MG TAB PO PRN (20:59)
[2024-01-23 07:07] VITALS: BP 148/82; TEMP 97.7; O2SAT 100
[2024-01-23] MEDS ORDERED: ABIL1TAB11 PO (09:12)
[2024-01-23] MEDS ORDERED: TRAZ-252 PO (09:12)
== END 2024-01-23 12:56 | disposition home or self-care (01) | DRG 751 ==
LOC: M ED 09:40 → M ED INP 12:45 → M PSY 14:05
PROVIDERS: ADMIT Student in an Organized Health Care Education/Training Program; ATTEND Student in an Organized Health Care Education/Training Program
DX: F29 Unspecified psychosis not due to a substance or known physiological condition (principal); B18.2 Chronic viral hepatitis C; F31.9 Bipolar disorder, unspecified; F41.9 Anxiety disorder, unspecified; F15.90 Other stimulant use, unspecified, uncomplicated

== ENCOUNTER 2024-01-29 16:24 | Emergency (ER) | payer MEDICAID, OTHER ==
[~2024-01-29] VITALS: Ht 167.6 cm; Wt 73.1 kg
[~2024-01-29 16:24] MED LIST changes: +ABIL1TAB11 PO; +SOFO1TAB PO; +TRAZ-252 PO
[2024-01-29 16:25] VITALS: BP 155/89; TEMP 98.9; O2SAT 96
== END 2024-01-29 19:09 | disposition left against medical advice (07) ==
LOC: M ED 16:24
DX: Z53.21 Procedure and treatment not carried out due to patient leaving prior to being seen by health care provider (principal)

== ENCOUNTER 2024-04-11 14:29 | Emergency (ER) | payer OTHER ==
[~2024-04-11] VITALS: Ht 167.6 cm; Wt 72.4 kg
[2024-04-11 14:31] VITALS: BP 160/90; TEMP 97.7; O2SAT 98
== END 2024-04-11 17:07 | disposition left against medical advice (07) ==
LOC: M ED 14:29
DX: Z53.21 Procedure and treatment not carried out due to patient leaving prior to being seen by health care provider (principal)

== ENCOUNTER → 2024-04-18 | Outpatient (CLI) | payer OTHER | LOC: M LAB 15:26 | PROVIDERS: ATTEND Physician Assistant Medical | DX: Z11.3 Encounter for screening for infections with a predominantly sexual mode of transmission (principal) ==

== ENCOUNTER → 2024-05-21 | Outpatient (CLI) | payer OTHER ==
[2024-05-21 18:51] LABS: ALKALINE PHOSPHATASE 76 U/L (35-104); ALT/SGPT < 9 U/L (7.0-40); AST/SGOT 13 U/L (<34); BILIRUBIN,DIRECT < 0.1 MG/DL (<0.4); BILIRUBIN,TOTAL 0.3 MG/DL (0.3-1.2); TOTAL PROTEIN 7.8 G/DL (5.7-8.2)
== END ==
LOC: M PLALAB 14:22
PROVIDERS: ATTEND Internal Medicine Infectious Disease
DX: B18.2 Chronic viral hepatitis C (principal)

== ENCOUNTER 2024-05-24 04:31 | Emergency (ER) | payer OTHER ==
[~2024-05-24] VITALS: Ht 167.6 cm; Wt 71.4 kg
[2024-05-24 04:33] VITALS: BP 159/103; TEMP 96.9
== END 2024-05-24 04:50 | disposition left against medical advice (07) ==
LOC: M ED 04:31
DX: Z53.21 Procedure and treatment not carried out due to patient leaving prior to being seen by health care provider (principal)

== ENCOUNTER → 2024-07-23 | Outpatient (REF) | payer OTHER ==
[2024-07-25 15:17] LABS: HPV APTIMA Not Detected (Not Detected)
== END ==
LOC: M PLALAB 14:17
PROVIDERS: ATTEND Specialist
DX: Z12.4 Encounter for screening for malignant neoplasm of cervix (principal)

== ENCOUNTER 2025-01-30 09:46 | Day surgery (SDC) | payer BC ==
[~2025-01-30] VITALS: Ht 167.6 cm; Wt 75.7 kg
[~2025-01-30 09:46] MED LIST changes: +ACETAMINOPHEN 1000MG/100ML IV BAG As Ordered ONE; +MIDAZOLAM INJ 2 MG/2 ML VIAL As Ordered ONE
[2025-01-30] MEDS ORDERED: LIDOCAINE 2% 100 MG/5 ML SDV (FOR ANES.) As Ordered ONE (10:39)
[2025-01-30] MEDS ORDERED: ONDANSETRON 4MG 2ML VIAL As Ordered ONE (12:11)
[2025-01-30] MEDS: ceFAZolin SOD 2 GM IV ONCE IV ONE (12:24)
[2025-01-30] MEDS: LIDOCAINE 1% MDV 20 ML VIAL As Ordered ONE (12:32)
[2025-01-30 13:32] VITALS: BP 146/80; TEMP 96.6; O2SAT 100
== END 2025-01-30 13:34 | disposition home or self-care (01) ==
LOC: M SDC 09:46
PROVIDERS: ATTEND Podiatrist Foot & Ankle Surgery
DX: M77.52 Other enthesopathy of left foot and ankle (principal)
CPT/HCPCS: 28124; 88300; J0131; J0665; J0690; J2250; J2405; J3010